=== PATIENT | female | born 1995 | race Caucasian/White ===

== ENCOUNTER 2018-07-16 06:57 | Emergency (ER) | payer BC, SELFPAY ==
[2018-07-16 06:58] VITALS: BP 136/75; BP 151/83; PULSE 106; PULSE 110; RESP 14; TEMP 36.1; TEMP 36.6; O2SAT 98; O2SAT 99; BMI 38.4
[2018-07-16] MEDS: 0.9% Normal Saline 1,000 ML 125 ML IV (07:30)
[2018-07-16 07:35] LABS: Internal QC Validated? YES +Cl - CLEAR BKGD; Pregnancy, Serum, hCG Quali. NEGATIVE Negative
[2018-07-16 07:40] LABS: Absolute Lymphocyte Count 4.68 X10^3/ul (0.83-4.51); Absolute Neutrophil Count 5.9 X10^3/uL (2.0-7.7); Basophil# 0.02 X10^3/uL; Basophil% 0.2 % (0-1); Eosinophil# 0.29 X10^3/uL; Eosinophils% 2.5 % (0-5); Hematocrit 41.6 % (37-47); Hemoglobin 13.7 g/dl (12.0-15.0); Lymphocyte # 4.68 X10^3/ul (4.0); Lymphocyte % 40.5 % (19-41); Mean Corp Hgb Conc 32.9 g/gl (32-36); Mean Corpuscular Hgb 27.6 pg (27.0-32.0); Mean Corpuscular Volume 83.9 fL (81-99); Mean Platelet Vol. 9.5 fl (6.2-12.0); Monocyte% 6.1 % (0-10); Neutrophil # 5.86 X10^3/uL (2.7-7.7); Neutrophil % 50.6 % (47-70); Platelet Count 307 K/mm3 (150-450); RBC Distribution Width CV 13.3 % (11.6-14.6); RBC Distribution Width SD 40.2 fl (35.1-43.9); Red Blood Count 4.96 M/mm3 (4.2-5.4); White Blood Count 11.6 K/mm3 (4.4-11.0)
[2018-07-16 07:44] LABS: ALB/GLOB Ratio 0.8 RATIO (0.9-2.4); AST(SGOT) 12 U/L (15-37); Alanine Aminotransfer ALT/SGPT 16 U/L (13-56); Albumin, Serum 3.3 g/dL (3.2-5.0); Alkaline Phosphatase 63 U/L (45-117); Anion Gap 8 (5-15); BUN 12 mg/dL (7-18); BUN/Creat Ratio 14.7 RATIO (10-20); Calcium,Total 8.8 mg/dL (8.5-10.1); Chloride 107 mmol/L (98-107); Creatinine, Serum 0.82 mg/dL (0.55-1.02); EST Glomerular Filtration Rate 93 mL/min (>60); Est Glom Filt Rate - Afr Amer 113 mL/min (>60); Estimated Creatinine Clearance 85.83 ml/min; Globulin 3.9 g/dL (2.2-4.2); Glucose 95 mg/dL (74-106); Lipase 314 U/L (73-393); POSITIVE COUNT NO; POSITIVE DIFFERENTIAL NO; POSITIVE MORPHOLOGY NO; Potassium 3.6 mmol/L (3.5-5.1); Protein, Total 7.2 g/dL (6.4-8.2); Sodium Level 141 mmol/L (136-145)
--- NOTE | 2018-07-16 09:03 | ED.DCSUM_ITS ---
- ER Visit Summary Date of Service: 07/16/18 Chief Complaint: [Abdominal pain] History of Present Illness: The patient is a 22 F [presents the emergency department complaint of abdominal pain that started around 1:30 AM. Patient describes an aching upper abdomen pain. Patient states the pain can radiates and wraps around to her back. She is had nausea but no vomiting. Patient has a history of some chronic diarrhea issues due to her metformin use for her PCOS. Patient has been having some chronic abdominal pain issues and is been seeing a metal fence erector. Within the last 4 months she is had an MRCP as well as ultrasound of the gallbladder which showed some gallstones. Patient's been treated for peptic ulcer disease and that has not make any difference in her abdominal discomfort. Patient has had colonoscopy within the last 4 months. Patient was told that she may have IBS. Patient currently rates her pain a 6 out of 10. Is had no fevers. She denies urinary symptoms.] Physical Examination: [HEENT-PERRLA, EOMI. Cranial nerves II through XII grossly intact. TMs clear. Mucous membranes moist. No adenopathy. Cardiovascular-regular rate and rhythm without murmur or ectopy Lungs-clear to auscultation, chest wall stable without crepitus or subcu emphysema Abdomen-normoactive bowel sounds, soft. Patient has tenderness to palpation over right upper quadrant and epigastric region. There is no rebound, rigidity, or perineal signs. There is no tenderness over McBurney's. Extremities-intact ?4, normal range of motion, normal pulses, atraumatic] Test Results: [CBC with differential obtained showed a white count of 11.6, hemoglobin 13.7, hematocrit 42, placed 307. Chemistries were normal. LFTs were normal. Lipase was 314.] Emergency Department Course and Treatment: [Patient refused pain medications images given normal saline. On repeat examination at 9 AM patient has no pain and states that her symptoms have resolved. At this point I do not feel any further imaging is indicated.] Treatment Plan: [Patient to follow-up with her metal fence erector within next 3 to 5 days. Patient advised to return if worsening pain, fever, vomiting, or conditions worsen anyway.] Disposition: [Discharged home in stable condition] Impression: [Abdominal pain-resolved] This note was generated with Queue-itation software. It may contain incorrect words, spelling, and punctuation that were not noted in review of the chart prior to signing ED Disposition - Plan for ED Patient: Referrals: Care Physician,No Primary [Primary Care Provider] -
--- NOTE | 2018-07-16 09:04 | ED.DEP ---
ED Disposition - Plan for ED Patient: Instructions: ED Abdominal Pain Unkn Cause Prescriptions: Dicyclomine HCl [Bentyl] 20 mg PO TIDAC #20 cap Referrals: Care Physician,No Primary [Primary Care Provider] -
[2018-07-16 09:19] VITALS: BP 114/73; PULSE 98; RESP 16; O2SAT 97; O2SAT 98
== END 2018-07-16 09:24 | disposition home or self-care (01) ==
PROVIDERS: Emergency Provider Emergency Medicine
DX: R10.11 Right upper quadrant pain (principal); R10.13 Epigastric pain; G89.29 Other chronic pain; R11.0 Nausea; K52.1 Toxic gastroenteritis and colitis; T38.3X5A Adverse effect of insulin and oral hypoglycemic [antidiabetic] drugs, initial encounter; Y92.9 Unspecified place or not applicable; E28.2 Polycystic ovarian syndrome; K80.80 Other cholelithiasis without obstruction; Z87.11 Personal history of peptic ulcer disease
CPT/HCPCS: 80053; 83690; 84703; 85025; 96360; 96361; 99283; J7030; A4216

== ENCOUNTER 2024-04-23 16:35 | Outpatient (CLI) | payer OTHER, SELFPAY ==
[2024-04-23 16:48] VITALS: PULSE 103; O2SAT 98
--- NOTE | 2024-04-23 16:50 | US_ITS ---
EXAM: BIOPHYSICAL PROF W/O NON STRES CLINICAL HISTORY: DECEL IN OFFICE. Reportedly, 36 weeks and 6 days gestation with VITALIY 05/15/2024. COMPARISON: None TECHNIQUE: A limited transabdominal obstetrical ultrasound was performed for evaluation of biophysical profile. FINDINGS: Breathing movement: 2 Gross Body movement: 2 Tone: 2 Qualitative Amniotic Fluid: 2 Amniotic Fluid Index: 26.2 cm, deepest vertical pocket 7.6 cm. Fetus is in cephalic presentation with a heart rate of 144 BPM. Placenta location: Anterior. Placental calcification noted. US/Biophysical Prof W/O Non Stres IMPRESSION: 1. Biophysical Profile Score of 8 out of a possible 8. 2. Amniotic fluid index 26.2 is nearly borderline but technically represents mi ld polyhydramnios. Deepest vertical pocket is high normal. Correlate with clinical evaluation. 3. Additional description as above. Reading Location: [id number]
[2024-04-23 16:52] VITALS: RESP 16
[2024-04-23 16:53] VITALS: PULSE 92; O2SAT 98
--- NOTE | 2024-04-23 18:52 | OB.TRI.NOTE ---
HPI - General General Date of Admission: 04/23/24 Date of Service: 04/23/24 Chief Complaint: Nonreactive NST HPI Narrative CHRISTA SALES, is a 28 F who presents from the office with a nonreactive NST. Questionable prolonged decel. BPP 09/20 now. Reactive NST on L&D. No other complaints. Pt instructed on movement monitoring and needs NST in Office this monday. Maternal Data Information Final VITALIY: 05/15/24 Gestational age: 36+6 PFSH PFSH Allergy/AdvReac Type Severity Reaction Status Date / Time No Known Allergies Allergy Verified 04/23/24 16:54 History 1 Elective abortions Hx Para 0 Spontaneous abortions Hx # Term Pregnancies Ectopic pregnancies Hx # Pregnancies Multiple births # of living children NST FHR Rate Baby A Variability:: Moderate Accelerations:: 15 x 15 Decelerations:: None NST Reactive:: Yes FHR Category:: Category I Uterine Activity:: quiet Assessment & Plan (1) 36 weeks gestation of : (2) Non-reactive NST (non-stress test): (3) Maternal obesity affecting , antepartum: PLAN: Plan Needs to have NSTs this monday
== END 2024-04-23 18:55 | disposition home or self-care (01) ==
LOC: WPOUT 16:44 → WP 16:45
PROVIDERS: PCP Physician Assistant; Referring Provider Obstetrics & Gynecology; Visit Provider Obstetrics & Gynecology
DX: O36.8330 Maternal care for abnormalities of the fetal heart rate or rhythm, third trimester, not applicable or unspecified (principal); O99.213 Obesity complicating pregnancy, third trimester; Z3A.36 36 weeks gestation of pregnancy
CPT/HCPCS: 59025; 59050; 76819; 99221; G0378

== ENCOUNTER 2024-04-24 16:04 | Outpatient (CLI) | payer OTHER, SELFPAY ==
--- NOTE | 2024-04-24 16:15 | US_ITS ---
PROCEDURE: BIOPHYSICAL PROF W/O NON STRES REASON FOR EXAM: R/O PRE E TECHNIQUE: A limited transabdominal obstetrical ultrasound was performed for evaluation of biophysical profile. COMPARISON: 04/23/2024. FINDINGS: breathing movement: 2 Gross body movement: 2 tone: 2 Quantitative amniotic Fluid: 2 OK currently 27.7 cm, previously 26.2 cm Deepest vertical pocket currently 10.2 cm, previously 7.6 cm Cephalic presentation heart rate 140 beats per minute Anterior grade 3 placenta without evidence of previa age LMP 37 weeks 0 days, VITALIY 05/15/2024 During imaging the umbilical cord is noted to appear draped at the neck but not definitely seen to completely wrap at this time, attention on follow-up. US/Biophysical Prof W/O Non Stres IMPRESSION: Biophysical profile 09/20. By amniotic fluid index and deepest vertical pocket patient is again falls with in the mild polyhydramnios range, clinically correlate. During imaging the umbilical cord is noted to appear draped at the neck but not definitely seen to completely wrap at this time, attention on follow-up. Reading Location: [id number]
[2024-04-24 16:19] VITALS: BP 128/80; PULSE 100; PULSE 108; RESP 18; TEMP 36.7; O2SAT 97
[2024-04-24 16:20] VITALS: PULSE 100; O2SAT 98
[2024-04-24 16:45] LABS: Hematocrit 39.6 % (37-47); Mean Corp Hgb Conc 32.8 g/dL (32-36); Mean Corpuscular Hgb 27.1 pg (27.0-32.0); Mean Corpuscular Volume 82.5 fL (81-99); Mean Platelet Vol. 10.8 fl (6.2-12.0); Platelet Count 328 K/mm3 (150-450); RBC Distribution Width CV 14.1 % (11.6-14.6); RBC Distribution Width SD 41.4 fl (35.1-43.9); White Blood Count 13.6 K/mm3 (4.4-11.0)
[2024-04-24 16:49] VITALS: BMI 46.9
[2024-04-24 17:05] VITALS: BP 127/79; PULSE 81
[2024-04-24 17:20] VITALS: BP 135/79; PULSE 89
--- NOTE | 2024-04-24 17:29 | OB.TRI.HP_ITS ---
HPI - General HPI Narrative CHRISTA SALES, is a 28 F who presents to triage for a BPP and PIH labs. Patient was seen in triage yesterday for suspected deceleration on NST in office and elevated blood pressures. She followed up today and reported no PIH labs collected. She was at work today until 4 pm and came to L&D for BPP and PIH labs. Maternal Data Information VITALIY Calculator Estimated Delivery Date Method Current WG Current Estimate 05/15/24 Manual 37w 0d PFSH PFSH Home Medications ?Medication ?Instructions ?Recorded ?Last Taken ?Type aspirin 81 mg chewable tablet 1 tab PO DAILY 04/24/24 04/24/24 08:00 History (Aspirin Childrens) levothyroxine 25 mcg tablet 25 mcg PO .QOD 04/24/24 06:00 History (Euthyrox) vits,calcium no.78-iron 1 tab PO DAILY pregna ncy 04/24/24 04/24/24 08:00 History fumarate-folic acid 29 mg-1 mg tablet (Prenatabs FA) Allergy/AdvReac Type Severity Reaction Status Date / Time No Known Allergies Allergy Verified 04/24/24 16:42 Social History (System 04/24/24 @ 07:42 by Romi Mar) Smoking Status: Never smoker History 1 Elective abortions Hx Para 0 Spontaneous abortions Hx # Term Pregnancies Ectopic pregnancies Hx # Pregnancies Multiple births # of living children ROS Eyes Eyes: Denies blurry vision Cardiovascular Cardiovascular: Reports none; Denies chest pain at rest, chest pain with activity or dizziness Respiratory/Chest Respiratory/Chest: Denies cough or dyspnea Gastrointestinal Gastrointestinal: Reports none and other; Denies diarrhea or vomiting Genitourinary Genitourinary: Denies dysuria Musculoskeletal Musculoskeletal: Reports none Integumentary Integumentary: Reports none; Denies rash Neurologic Neurologic: Denies dizziness, headache(s) or other visual disturbances Psychiatric Psychiatric: Reports none Physical Exam Const alert and no apparent distress General Appearance: cooperative Orientation / Consciousness: awake Exam Limitations: no limitations HEENT normocephalic Eyes General Eye: normal appearance of both eyes Neck full ROM Chest inspection of chest normal Resp normal respiratory effort and normal air movement Effort and Inspection: symmetric chest movement Auscultation: clear to auscultation bilaterally Cardio regular rate GI soft to palpation, non-tender and non-distended Inspection: and other Back/Spine normal ROM Extremity full ROM, normal capillary refill and no calf tenderness Skin no rashes or lesions noted Neuro oriented x3 and CN's II-XII intact bilaterally Psych mental status grossly normal NST FHR Rate Baby A Baseline: 140 Variability:: Moderate Accelerations:: 15 x 15 Decelerations:: None NST Reactive:: Yes FHR Category:: Category I Uterine Activity:: Irritability Assessment & Plan (1) Maternal obesity affecting , antepartum: (2) 37 weeks gestation of : (3) Elevated blood pressure affecting in third trimester, antepartum: PLAN: Plan Blood pressures within normal ranges today - no severe or elevated of 140/90's PIH labs normal BPP 8/8 NST reactive D/C home with follow up in office Dr. Rico notified and involved with plan of care
[2024-04-24 17:31] LABS: AST(SGOT) 21 U/L (<=31); Alanine Aminotransfer ALT/SGPT 14 U/L (<=34); Creatinine, Serum 0.69 mg/dL (0.70-1.20); EST Glomerular Filtration Rate 122 (>60); Estimated Creatinine Clearance 148.14 ml/min (50-250)
[2024-04-24 17:35] VITALS: BP 128/75; PULSE 86
[2024-04-24 17:35] LABS: Protein, Urine (Random) 20.9 mg/dL (0.0-12.0); Protein:Creat Ratio 117 mg/g CRE (0-200)
[2024-04-24 17:50] VITALS: BP 134/80; PULSE 90
[2024-04-24 17:58] LABS: Uric Acid 6.2 mg/dL (2.6-6.0)
== END 2024-04-24 18:04 | disposition home or self-care (01) ==
LOC: WPOUT 16:07 → WP 16:07
PROVIDERS: PCP Physician Assistant; Referring Provider Advanced Practice Midwife; Visit Provider Advanced Practice Midwife
DX: O99.891 Other specified diseases and conditions complicating pregnancy (principal); R03.0 Elevated blood-pressure reading, without diagnosis of hypertension; Z3A.37 37 weeks gestation of pregnancy; O99.213 Obesity complicating pregnancy, third trimester
CPT/HCPCS: 36415; 59025; 59050; 76819; 82565; 82570; 84156; 84450; 84460; 84550; 85027; 99221; G0378

== ENCOUNTER 2024-05-03 09:03 | Inpatient (IN) | payer OTHER, SELFPAY ==
[2024-05-03] VITALS (13 sets, daily range): BP systolic 125–140; BP diastolic 73–91; PULSE 73–106; RESP 16–17; TEMP 36.3–37.3; O2SAT 96–99; BMI 49.3
[2024-05-03 08:57] LABS: ROM Patient Test POSITIVE (Negative); Record Kit Lot#, ROM+ K3294
[2024-05-03 09:04] LABS: ROM Internal Control Test YES-OK TO RESULT pt. (Internal QC)
[2024-05-03] MEDS: Lactated Ringers 1,000 ML 50 ML IV (09:50)
[2024-05-03 10:08] LABS: Absolute Lymphocyte Count 3.08 X10^3/uL (0.83-4.51); Absolute Neutrophil Count 7.7 X10^3/uL (2.0-7.7); Basophil# 0.03 X10^3/uL; Basophil% 0.3 % (0-1); Eosinophil# 0.02 X10^3/uL; Eosinophils% 0.2 % (0-5); Hematocrit 39.2 % (37-47); Hemoglobin 13.3 g/dL (12.0-15.0); Lymphocyte # 3.08 X10^3/ul (0.83-4.51); Lymphocyte % 26.7 % (19-41); Mean Corp Hgb Conc 33.9 g/dL (32-36); Mean Corpuscular Hgb 28.1 pg (27.0-32.0); Mean Corpuscular Volume 82.9 fL (81-99); Mean Platelet Vol. 11.1 fl (6.2-12.0); Monocyte# 0.68 X10^3/uL; Monocyte% 5.9 % (0-10); NRBC Flagged by Analyzer 0 % (0-5); Neutrophil # 7.66 X10^3/uL (2.7-7.7); Neutrophil % 66.5 % (47-70); Platelet Count 253 K/mm3 (150-450); RBC Distribution Width CV 14.4 % (11.6-14.6); RBC Distribution Width SD 42.4 fl (35.1-43.9); Red Blood Count 4.73 M/mm3 (4.2-5.4); White Blood Count 11.5 K/mm3 (4.4-11.0)
[2024-05-03] MEDS: miSOPROStol 25 MCG TABLET PO ×4 (10:10→22:30)
[2024-05-03 10:38] LABS: Syphilis Antibodies Nonreactive (Nonreactive)
--- NOTE | 2024-05-03 18:24 | HP.PCM.OB_ITS ---
HPI - General General Date of Admission: 05/03/24 Date of Service: 05/03/24 Chief Complaint: ROM HPI Narrative CHRISTA AGUDELO, is a 28 F who presents SROM around 4 am. Clear. Maternal Data Information VITALIY Calculator Estimated Delivery Date Method Current WG Current Estimate 05/15/24 Manual 38w 2d Final VITALIY: 05/15/24 Gestational age: 38+2 PFSH PFSH Medical History Normal colonoscopy Obesity (BMI 35.0-39.9 without comorbidity) PCOS (polycystic ovarian syndrome) Headache Hypothyroidism Home Medications ?Medication ?Instructions ?Recorded ?Last Taken ?Type aspirin 81 mg chewable tablet 1 tab PO DAILY 04/24/24 04/24/24 08:00 History (Aspirin Childrens) levothyroxine 25 mcg tablet 125 mcg PO .QOD hypothyroi d 04/24/24 05/01/24 History (Euthyrox) vits,calcium no.78-iron 1 tab PO DAILY pregna ncy 04/24/24 04/24/24 08:00 History fumarate-folic acid 29 mg-1 mg tablet (Prenatabs FA) Allergy/AdvReac Type Severity Reaction Status Date / Time No Known Allergies Allergy Verified 05/03/24 08:56 Surgical History Mcdermott teeth extracted History of surgery Social History Smoking Status: Never smoker History 1 Elective abortions Hx Para 0 Spontaneous abortions Hx # Term Pregnancies Ectopic pregnancies Hx # Pregnancies Multiple births # of living children NST FHR Rate Baby A Baseline: 140 Variability:: Moderate Accelerations:: 15 x 15 Decelerations:: None NST Reactive:: Yes ROS Constitutional Constitutional: Denies fatigue, fever(s) or malaise Eyes Eyes: Denies change in vision ENT HEENT: Denies dizziness or headache(s) Cardiovascular Cardiovascular: Denies chest pain, dyspnea or lightheadedness Respiratory/Chest Respiratory/Chest: Denies cough or dyspnea Gastrointestinal Gastrointestinal: Denies change in bowel habits Genitourinary Genitourinary: Denies burning urination or genital lesions Integumentary Integumentary: Denies rash Neurologic Neurologic: Denies confusion, dizziness, headache(s), numbness or weakness Vital Signs Vital Signs Vital Signs: 05/03/24 08:47 05/03/24 08:47 05/03/24 08:48 Temperature Temperature Source Pulse Rate 96 100 Respiratory Rate Blood Pressure 134/84 H BP Systolic 134 BP Diastolic 84 Pulse Ox 05/03/24 08:48 05/03/24 08:48 05/03/24 08:48 Temperature Temperature Source Temporal Pulse Rate Respiratory Rate 16 Blood Pressure BP Systolic BP Diastolic Pulse Ox 96 05/03/24 08:48 05/03/24 12:09 05/03/24 12:09 Temperature 97.4 F L Temperature Source Pulse Rate 105 H Respiratory Rate Blood Pressure 132/85 H BP Systolic 132 BP Diastolic 85 Pulse Ox 05/03/24 12:09 05/03/24 12:09 05/03/24 12:09 Temperature 99.1 F Temperature Source Temporal Pulse Rate Respiratory Rate 16 Blood Pressure BP Systolic BP Diastolic Pulse Ox 05/03/24 12:10 05/03/24 12:10 05/03/24 14:15 Temperature Temperature Source Pulse Rate 106 H Respiratory Rate Blood Pressure 125/73 H BP Systolic 125 BP Diastolic 73 Pulse Ox 97 05/03/24 14:15 05/03/24 14:15 05/03/24 14:15 Temperature Temperature Source Temporal Pulse Rate 95 Respiratory Rate 16 Blood Pressure BP Systolic BP Diastolic Pulse Ox 05/03/24 14:15 05/03/24 14:16 05/03/24 14:16 Temperature 99.0 F Temperature Source Pulse Rate 98 Respiratory Rate Blood Pressure BP Systolic BP Diastolic Pulse Ox 99 Weight Weight: 118.388 kg Body Mass Index (BMI) 49.3 Physical Exam Const alert and no apparent distress General Appearance: cooperative HEENT normocephalic Resp normal respiratory effort Cardio regular rate GI soft to palpation GI Narrative: gravid, nontender, appropriate for gestational age Extremity no calf tenderness General Extremity: edema Skin no wounds Rashes: No rashes noted Psych activity/motor behavior normal Labs Labs Labs: Blood Type O POSITIVE Antibody Screen NEGATIVE Hct 39.2 % (37-47) Hgb 13.3 g/dL (12.0-15.0) Syphilis Total Ab Nonreactive (Nonreactive) Assessment & Plan (1) PROM (premature rupture of membranes): (2) 38 weeks gestation of : (3) Maternal obesity affecting , antepartum: PLAN: Plan Cytotec PO until able to place nelson ballon GBS negative
--- NOTE | 2024-05-03 18:26 | PCM.PN.OB ---
Subjective Subjective Clear fluid Cervix very high. 0-FT VTX by US Objective Data Objective Data Vital Signs: Vital Signs Temp Pulse Resp BP Pulse Ox 99.0 F 98 16 125/73 H 99 05/03/24 14:15 05/03/24 14:16 05/03/24 14:15 05/03/24 14:15 05/03/24 14:16 Weight: 118.388 kg Body Mass Index (BMI) 49.3 Intake & Output: Intake and Output for Last 24 Hours 05/01/24 05/02/24 05/03/24 23:59 23:59 23:59 Intake Total 8.33 / 8.33 Balance 8.33 / 8.33 Lab / Micro Data 05/03/24 09:50 Labs: Laboratory Results - last 24 hr 05/03/24 08:40: Vag Amniotic Fld Detect POSITIVE H 05/03/24 09:50: WBC 11.5 H, RBC 4.73, Hgb 13.3, Hct 39.2, MCV 82.9, MCH 28.1, MCHC 33.9, RDW Std Deviation 42.4, RDW Coeff of Jeffy 14.4, Plt Count 253, MPV 11.1, Immature Gran % (Auto) 0.400, Neut % (Auto) 66.5, Lymph % (Auto) 26.7, [place] % (Auto) 5.9, Eos % (Auto) 0.2, Baso % (Auto) 0.3, Absolute Neuts (auto) 7.7, Absolute Lymphs (auto) 3.08, Nucleated RBC % 0, Syphilis Total Ab Nonreactive, Blood Type Cancelled, Antibody Screen Cancelled 05/03/24 10:15: Blood Type O POSITIVE, Antibody Screen NEGATIVE NST FHR Rate Baby A Baseline: 140s Variability:: Moderate Accelerations:: 15 x 15 Decelerations:: None NST Reactive:: Yes Assessment & Plan (1) 38 weeks gestation of : (2) PROM (premature rupture of membranes): (3) Maternal obesity affecting , antepartum: PLAN: Plan PO cytotec
[2024-05-04] VITALS (56 sets, daily range): BP systolic 112–153; BP diastolic 53–91; PULSE 68–129; RESP 14–18; TEMP 36.1–37.4; O2SAT 93–99
[2024-05-04] MEDS: Acetaminophen 500 MG Tablet PO (00:27)
[2024-05-04] MEDS: fentaNYL 100 MCG/2 ML Ampul IV ×2 (01:23→08:03)
[2024-05-04] MEDS: 0.9% Saline Lock 10 ML Syringe IV (01:23)
[2024-05-04] MEDS: miSOPROStol 25 MCG TABLET PO (02:22)
[2024-05-04] MEDS: Lactated Ringers 1,000 ML 200 ML IV ×3 (02:24→22:15)
--- NOTE | 2024-05-04 08:16 | PCM.PN.OB ---
Subjective Subjective Chavez bulb placed without difficulty. 1.5 cm/70/-3. S/p cytotec x 5 Objective Data Objective Data Vital Signs: Vital Signs Temp Pulse Resp BP Pulse Ox 97.8 F 68 16 139/77 H 97 05/04/24 05:19 05/04/24 05:19 05/04/24 05:19 05/04/24 05:19 05/04/24 01:47 Weight: 118.388 kg Body Mass Index (BMI) 49.3 Intake & Output: Intake and Output for Last 24 Hours 05/02/24 05/03/24 05/04/24 23:59 23:59 23:59 Intake Total 507.83 / 507.83 1261.62 / 1261.62 Balance 507.83 / 507.83 1261.62 / 1261.62 Lab / Micro Data 05/03/24 09:50 Labs: Laboratory Results - last 24 hr 05/03/24 08:40: Vag Amniotic Fld Detect POSITIVE H 05/03/24 09:50: WBC 11.5 H, RBC 4.73, Hgb 13.3, Hct 39.2, MCV 82.9, MCH 28.1, MCHC 33.9, RDW Std Deviation 42.4, RDW Coeff of Jeffy 14.4, Plt Count 253, MPV 11.1, Immature Gran % (Auto) 0.400, Neut % (Auto) 66.5, Lymph % (Auto) 26.7, [place] % (Auto) 5.9, Eos % (Auto) 0.2, Baso % (Auto) 0.3, Absolute Neuts (auto) 7.7, Absolute Lymphs (auto) 3.08, Nucleated RBC % 0, Syphilis Total Ab Nonreactive, Blood Type Cancelled, Antibody Screen Cancelled 05/03/24 10:15: Blood Type O POSITIVE, Antibody Screen NEGATIVE NST FHR Rate Baby A Baseline: 145 Variability:: Moderate Accelerations:: 15 x 15 Decelerations:: None NST Reactive:: Yes FHR Category:: Category I Assessment & Plan (1) 38 weeks gestation of : (2) PROM (premature rupture of membranes):
[2024-05-04] MEDS: Lactated Ringers 1,000 ML 50 ML IV (09:12)
[2024-05-04] MEDS: Oxytocin 15 Units/NS 250ml 15 UNITS/250 ML IV.SOLN 2 UNITS IV (09:44)
[2024-05-04] MEDS: Lactated Ringers 1,000 ML 999 ML IV (09:55)
[2024-05-04] MEDS: fentaNYL-bupivacaine (epidural) 100 ML BAG EPIDURAL ×3 (11:15→22:44)
[2024-05-04] MEDS: Ondansetron 4 MG/2 ML Vial IV (13:22)
--- NOTE | 2024-05-04 13:30 | PCM.PN.OB ---
Subjective Subjective Forebag ruptured for clear fluid. IUPC and FSE placed without difficulty. Pitocin per protocol. Comfortable with epidural Objective Data Objective Data Vital Signs: Vital Signs Temp Pulse Resp BP Pulse Ox 97.8 F 129 H 16 114/53 L 94 05/04/24 12:02 05/04/24 13:18 05/04/24 12:02 05/04/24 13:18 05/04/24 12:13 Weight: 118.388 kg Body Mass Index (BMI) 49.3 Intake & Output: Intake and Output for Last 24 Hours 05/02/24 05/03/24 05/04/24 23:59 23:59 23:59 Intake Total 507.83 / 507.83 2324.92 / 2324.92 Balance 507.83 / 507.83 2324.92 / 2324.92 Lab / Micro Data 05/03/24 09:50 NST FHR Rate Baby A Baseline: 150 Variability:: Moderate Accelerations:: 15 x 15 Decelerations:: None NST Reactive:: Yes FHR Category:: Category I Assessment & Plan (1) 38 weeks gestation of : (2) PROM (premature rupture of membranes): (3) Maternal obesity affecting , antepartum: PLAN: Plan continue with labor augmentation
[2024-05-04] MEDS: LACTATED RINGERS 500 ML 999 ML IV (13:49)
[2024-05-05] VITALS (41 sets, daily range): BP systolic 118–151; BP diastolic 68–91; PULSE 74–122; RESP 14–18; TEMP 35.8–38.3; O2SAT 93–100
[2024-05-05] MEDS: Ondansetron 4 MG/2 ML Vial IV (02:45)
[2024-05-05] MEDS: Lactated Ringers 1,000 ML 200 ML IV (03:15)
[2024-05-05] MEDS: proCHLORPERazine 10 MG/2 ML Vial IV (04:00)
[2024-05-05] MEDS: Acetaminophen 500 MG Tablet PO (04:01)
[2024-05-05] MEDS: fentaNYL-bupivacaine (epidural) 100 ML BAG EPIDURAL (05:37)
--- NOTE | 2024-05-05 05:47 | PCM.PN.OB ---
Subjective Subjective Patient complete and pushing. Temp 100.4. Starting Unasyn. Intermittent arrhythmia. Variable with pushing. Epidural turned down to help facilitate pushing effort. Objective Data Objective Data Vital Signs: Vital Signs Temp Pulse Resp BP Pulse Ox 100.4 F H 122 H 16 129/75 H 93 05/05/24 05:08 05/05/24 05:08 05/05/24 05:08 05/05/24 05:07 05/05/24 05:08 Weight: 118.388 kg Body Mass Index (BMI) 49.3 Intake & Output: Intake and Output for Last 24 Hours 05/03/24 05/04/24 05/05/24 23:59 23:59 23:59 Intake Total 507.83 / 507.83 4268.98 / 4268.98 1000 / 1000 Output Total 1200 / 1200 700 / 700 Balance 507.83 / 507.83 3068.98 / 3068.98 300 / 300 Lab / Micro Data 05/03/24 09:50 Assessment & Plan (1) 38 weeks gestation of : (2) PROM (premature rupture of membranes): (3) Maternal obesity affecting , antepartum: (4) Intrapartum fever:
[2024-05-05] MEDS: Ampicillin/Sulbactam 3 GM in 0.9% Normal Saline (100mL MB+) 100 ML IV (06:04)
--- NOTE | 2024-05-05 06:46 | EX.PCM.OBVAG ---
Assessment & Plan (1) (spontaneous vaginal delivery): Maternal Data Information VITALIY Calculator Estimated Delivery Date Method Current WG Current Estimate 05/15/24 Manual 38w 4d Final VITALIY: 05/15/24 Gestational age: 38+4 Vaginal Delivery Maternal Presentation Maternal Presentation: Spontaneous Rupture of Membranes Maternal Presentation: SROM clear Type of Induction: Pitocin, Chavez Bulb, Amniotomy (fore bag) and Cytotec Medical Reason for Induction: Other Vaginal Delivery Information Procedure Performed: Spontaneous Vaginal Delivery Surgeon/Practitioner: Helena Canseco Date of Procedure: 05/05/24 Pre-Procedure Diagnosis: PROM Post-Procedure Diagnosis: Type of anesthesia: Epidural Special Medications: Unasyn for maternal fever. Started while pushing Estimated Blood Loss: 200 cc Time of Delivery: 06:17 Findings Description of procedure: Patient presented with SROM. Closed/thick/hi. Received 5 doses of Cytotec, Chavez bulb and Pitocin. Progressed to complete and pushed for about 2 hours over an intact peritoneum. Delivered CARSON with a cord around the shoulders that the delivered through quickly. Meconium fluid came after delivery. The was placed on the maternal abdomen. The cord was cut at one minute. Cord blood was collected. The placenta was delivered spontaneously. A second degree laceration was repaired with 2-0 Vicryl. TXA was given for increased bleeding. Sponge, needle and instrument counts were correct. Presentation: Vertex and CARSON Amniotic Membrane Rupture Type: Spontaneous Amniotic Fluid Description: Moderate meconium Placental Delivery Description: Spontaneous Placenta Disposition: [facility] Specimen collected: Yes Description of specimen(s) removed: cord blood Cord Vessel Description: 3 Vessels Cord Entanglement: Around neck x 1, loose Nuchal Cord Compression: Without compression A Gender: Male (1 minute): 7 (5 minute): 9 Delayed Cord Clamping: Yes Production Engine Repairer wax engraver: No Post Vaginal Deli Medications given after delivery: IV Pitocin Episiotomy Description: None Laceration: Midline and 2nd degree Complication Complications: No
[2024-05-05] MEDS: TRANEXAMIC ACID 1,000 MG in 0.9% Normal Saline (100mL Bag) 100 ML 440 MG IV (07:28)
[2024-05-05] MEDS: Oxytocin 15 Units/NS 250ml 15 UNITS/250 ML IV.SOLN 83 UNITS IV (07:50)
[2024-05-05] MEDS: Ibuprofen 600 MG Tablet PO ×3 (08:48→21:49)
[2024-05-05] MEDS: Acetaminophen 500 MG Tablet 1000 MG PO ×2 (14:29→20:44)
[2024-05-06] MEDS: Acetaminophen 500 MG Tablet 1000 MG PO ×2 (02:36→10:26)
[2024-05-06] MEDS: Ibuprofen 600 MG Tablet PO (03:52)
[2024-05-06 04:02] VITALS: BP 139/78; PULSE 78; RESP 16; TEMP 36.4; O2SAT 99
[2024-05-06 04:03] VITALS: BP 139/78; PULSE 75; O2SAT 97
--- NOTE | 2024-05-06 06:20 | PCM.PN.OB ---
Subjective Subjective Doing well. Ambulating and voiding without difficulty. Mild lochia. Breast feeding. Objective Data Objective Data Vital Signs: Vital Signs Temp Pulse Resp BP Pulse Ox O2 Del Method 97.6 F L 75 16 139/78 H 97 Room Air 05/06/24 04:02 05/06/24 04:03 05/06/24 04:02 05/06/24 04:03 05/06/24 04:03 05/06/24 04:02 Oxygen Delivery Method Room Air Weight: 118.388 kg Body Mass Index (BMI) 49.3 Intake & Output: Intake and Output for Last 24 Hours 05/04/24 05/05/24 05/06/24 23:59 23:59 23:59 Intake Total 4268.98 / 4268.98 2319.64 / 2319.64 Output Total 1200 / 1200 1500 / 1500 Balance 3068.98 / 3068.98 819.64 / 819.64 Lab / Micro Data 05/03/24 09:50 ROS Constitutional Constitutional: Denies headache(s) Cardiovascular Cardiovascular: Denies chest pain or dyspnea Gastrointestinal Gastrointestinal: Denies nausea or vomiting Genitourinary Genitourinary: Denies dysuria Physical Exam Const alert, oriented x3 and no apparent distress General Appearance: cooperative and comfortable Eyes PERRL and EOMs intact bilaterally Resp normal respiratory effort GI soft to palpation and non-tender Uterus Palpation: uterus fundus firm ( below umbilicus) Extremity normal to inspection and full ROM Neuro oriented x3 and CN's II-XII intact bilaterally Psych mental status grossly normal Assessment & Plan (1) (spontaneous vaginal delivery): PLAN: Plan Discharge pending infant discharge
--- NOTE | 2024-05-06 06:22 | PCM.DC.SUM ---
Providers Date of Admission: 05/03/24 Date of Discharge: 05/06/24 Primary Care Physician: SEBASTIAN Downey Reason For Visit: LABOR AND DELIVERY Diagnosis Discharge Diagnosis (1) (spontaneous vaginal delivery): Status: Acute Code(s): O80 - Encounter for full-term uncomplicated delivery Plan Discharge pending infant discharge Medications at Discharge Home Medications levothyroxine 25 mcg tablet (Euthyrox) 125 mcg PO .QOD hypothyroid 04/24/24 vits,calcium no.78-iron fumarate-folic acid 29 mg-1 mg tablet (Prenatabs FA) 1 tab PO DAILY 04/24/24 Hospital Course Operations None Procedures None Summary of Care Provided Minutes Spent on Discharge: 20 Hospital Course: Admitted for PROM. Cytotec, nelson, and pitocin. . Uncomplicated bottle feeding. Physical Exam Const alert and no apparent distress Narrative: Fundus firm, below umbilicus. Weight / BMI Weight Weight: 118.388 kg Body Mass Index (BMI) 49.3 ABG / Lab / Microbiology Data 05/03/24 09:50 D/C Instructions May resume sexual activity in: 6 weeks DC O2, CPAP, BIPAP Needs Home O2 Discharge instructions: No Please Follow Up With: Xiomara العراقي MD When: Follow up with our office in 1-2 and 6 weeks or as needed. [phone] Meaningful Use Info Meaningful Use Meaningful Use Diagnoses (Choose all that apply): None applicable Ischemic Stroke Statin Dosing Therapy Reference: STATIN DOSE THERAPY REFERENCE: * Patients > 75 years receive moderate or high dose statin therapy. * Patients 75 years or YOUNGER should receive HIGH intensity statin dose unless contraindicated. You will be required to document reason for non-treatment if statin daily dose does not meet guidelines. HIGH DOSE STATIN THERAPY DAILY Atorvastatin > than or = to 40 mg Rosuvastatin > than or = to 20 mg Amlodipine + Atorvastatin > than or = to 2.5/40 mg Ezetimibe + Simvastatin 10/80 mg Simvastatin 80mg Discharge Plan Admission Admit Date/Time: 05/03/24 09:03 Primary Reason for Your Visit: Labor Attending Provider: Helena Canseco Primary Care Provider: Saravanan Young Discharge Orders/Prescriptions Prescriptions: Continued levothyroxine [Euthyrox] 25 mcg tablet 125 mcg PO .QOD Prenatabs FA 29-1 mg tablet 1 tab PO DAILY Discontinued aspirin [Aspirin Childrens] 81 mg tablet,chewable 1 tab PO DAILY Referrals / Follow Up: Saravanan Young PA [Primary Care Provider] - Disposition Disposition (needs filled in before D/C Order can be placed): Home, Self Care
[2024-05-06] MEDS: Levothyroxine 125 MCG Tablet PO (06:28)
[2024-05-06 08:51] VITALS: BP 125/67; PULSE 78; O2SAT 99
[2024-05-06 09:00] VITALS: BP 125/67; PULSE 77; RESP 18; TEMP 36.3; O2SAT 100
[2024-05-06 13:11] VITALS: BP 138/87; PULSE 84; RESP 18; TEMP 37.1; O2SAT 100
[2024-05-06 13:12] VITALS: BP 138/87; PULSE 81
== END 2024-05-06 13:25 | disposition home or self-care (01) | DRG 806 ==
LOC: WPOUT 09:08 → WP 09:08
PROVIDERS: Admitting Provider Obstetrics & Gynecology; PCP Physician Assistant; Referring Provider Obstetrics & Gynecology; Visit Provider Obstetrics & Gynecology
DX: O42.12 Full-term premature rupture of membranes, onset of labor more than 24 hours following rupture (principal); Z37.0 Single live birth; O75.2 Pyrexia during labor, not elsewhere classified; E03.9 Hypothyroidism, unspecified; O99.284 Endocrine, nutritional and metabolic diseases complicating childbirth; O26.03 Excessive weight gain in pregnancy, third trimester; O69.81X0 Labor and delivery complicated by cord around neck, without compression, not applicable or unspecified; O70.1 Second degree perineal laceration during delivery; O76 Abnormality in fetal heart rate and rhythm complicating labor and delivery; O77.0 Labor and delivery complicated by meconium in amniotic fluid; Z3A.38 38 weeks gestation of pregnancy; Z79.890 Hormone replacement therapy
CPT/HCPCS: 59025; 59050; 84112; 85025; 86780; 86850; 86900; 86901; 99221; A4216; G0378; J0295; J2405